=== PATIENT | male | born 1985 | race Caucasian/White ===

== ENCOUNTER 2023-03-02 20:33 | Emergency (ER) | payer MEDICAID ==
[~2023-03-02] VITALS: Ht 172.7 cm; Wt 72.6 kg
[2023-03-02 20:40] VITALS: BP 125/78; PULSE 67; RESP 16; TEMP 98; O2SAT 97
[2023-03-02 22:42] LABS: BASOPHILS % (AUTO) 0.6 % (0.0-2.0); EOSINOPHILS # (AUTO) 0.1 K/uL (0-0.4); EOSINOPHILS % (AUTO) 2.3 % (0.0-4.0); HEMOGLOBIN 14.5 g/dL (12.0-18.0); LYMPHOCYTES # (AUTO) 2.6 K/uL (2.0-11.5); LYMPHOCYTES % (AUTO) 39.8 % (20.5-51.1); MEAN CORPUSCULAR HEMOGLOBIN 30 pg (27-31); MEAN CORPUSCULAR HGB CONC 35 g/dL (33-37); MONOCYTES # (AUTO) 0.8 K/uL (0.8-1.0); MONOCYTES % (AUTO) 11.8 % (1.7-9.3); NEUTROPHILS % (AUTO) 45.5 % (42.2-75.2); PLATELET COUNT (AUTO) 243 K/uL (140-450); RED BLOOD CELL COUNT(AUTO) 4.77 MIL/uL (4.20-6.10); RED CELL DISTRIBUTION WIDTH 13.1 % (11.6-13.7); WHITE BLOOD COUNT (AUTO) 6.5 K/uL (4.8-10.8)
[2023-03-02] MEDS ORDERED: DICYCLOMINE HCL LIQUID 20 MG, ALUMINUM HYD/MAG/SIMETHICONE 30 ML, LIDOCAINE VISCOUS 2% ... PO ONE ×3 (22:50)
[2023-03-02] MEDS ORDERED: ALUMINUM HYD/MAG/SIMETHICONE 30 ML UDC ONE (22:53)
[2023-03-02] MEDS ORDERED: DICYCLOMINE HCL LIQUID 10 MG/5 ML UDC ONE (22:54)
[2023-03-02 23:04] LABS: ANION GAP 10.5 (8-16); CARBON DIOXIDE 26.6 mmol/L (21-32); POTASSIUM 4.1 mmol/L (3.5-5.1); TOTAL BILIRUBIN 0.4 mg/dL (0.0-1.0); TOTAL PROTEIN, SERUM 7.2 g/dL (6.4-8.2)
[2023-03-02 23:16] LABS: APPEARANCE,URINE CLEAR (CLEAR); BILIRUBIN,URINE NEGATIVE (NEGATIVE); BLOOD, URINE NEGATIVE (NEGATIVE); COLOR,URINE YELLOW (YELLOW); LEUKOCYTE ESTERASE ,URINE NEGATIVE (NEGATIVE); NITRITE, URINE NEGATIVE (NEGATIVE); PROTEIN,URINE NEGATIVE (NEGATIVE); UGLUCOSE NEGATIVE (NEGATIVE); UROBILINOGEN,URINE 0.2 EU/dL (0.2 - 1)
[2023-03-03] MEDS ORDERED: MAG355OR2 PO (00:39)
[2023-03-03] MEDS ORDERED: OMEP40EC23 PO (00:39)
[2023-03-03 01:05] VITALS: BP 105/68; PULSE 56; RESP 19; TEMP 98.7; O2SAT 97
== END 2023-03-03 01:05 | disposition home or self-care (01) ==
LOC: MED 20:33
DX: K29.70 Gastritis, unspecified, without bleeding (principal); R10.13 Epigastric pain; R11.2 Nausea with vomiting, unspecified; R19.7 Diarrhea, unspecified; Z88.0 Allergy status to penicillin; Z79.899 Other long term (current) drug therapy
CPT/HCPCS: 36415; 76705; 80053; 81003; 83690; 85025; 99284

== ENCOUNTER 2023-04-14 17:56 | Emergency (ER) | payer MEDICAID ==
[~2023-04-14] VITALS: Ht 172.7 cm; Wt 95.7 kg
[~2023-04-14 17:56] MED LIST: MAG355OR2 PO; OMEP40EC23 PO
[2023-04-14 18:42] VITALS: BP 125/72; PULSE 67; RESP 20; TEMP 97.7; O2SAT 98
[2023-04-14 19:29] LABS: BASOPHILS % (AUTO) 0.6 % (0.0-2.0); EOSINOPHILS # (AUTO) 0.2 K/uL (0-0.4); EOSINOPHILS % (AUTO) 2.3 % (0.0-4.0); HEMATOCRIT 41.9 % (36-52); HEMOGLOBIN 14.4 g/dL (12.0-18.0); LYMPHOCYTES # (AUTO) 2.4 K/uL (2.0-11.5); LYMPHOCYTES % (AUTO) 35.7 % (20.5-51.1); MEAN CORPUSCULAR HEMOGLOBIN 30 pg (27-31); MEAN CORPUSCULAR HGB CONC 34 g/dL (33-37); MEAN CORPUSCULAR VOLUME 88.4 fL (80-94); MONOCYTES # (AUTO) 0.7 K/uL (0.8-1.0); MONOCYTES % (AUTO) 9.8 % (1.7-9.3); NEUTROPHILS # (AUTO) 3.5 K/uL (1.8-7.7); NEUTROPHILS % (AUTO) 51.6 % (42.2-75.2); PLATELET COUNT (AUTO) 246 K/uL (140-450); RED BLOOD CELL COUNT(AUTO) 4.74 MIL/uL (4.20-6.10); RED CELL DISTRIBUTION WIDTH 13.3 % (11.6-13.7); WHITE BLOOD COUNT (AUTO) 6.8 K/uL (4.8-10.8)
[2023-04-14 19:40] LABS: ANION GAP 12.1 (8-16); CALCIUM 8.2 mg/dL (8.5-10.1); CARBON DIOXIDE 26.6 mmol/L (21-32); POTASSIUM 3.7 mmol/L (3.5-5.1)
[2023-04-14] MEDS ORDERED: ONDANSETRON 4 MG ODT PO ONE (20:45)
[2023-04-14] MEDS ORDERED: KETOROLAC 60 MG/2 ML VIAL IM ONE (20:45)
[2023-04-14 20:53] LABS: ALBUMIN 3.8 g/dL (3.4-5.0); BILIRUBIN,DIRECT 0.1 mg/dL (0.0-0.3); TOTAL BILIRUBIN 0.3 mg/dL (0.0-1.0)
[2023-04-14 21:09] LABS: APPEARANCE,URINE CLEAR (CLEAR); BILIRUBIN,URINE NEGATIVE (NEGATIVE); BLOOD, URINE NEGATIVE (NEGATIVE); COLOR,URINE YELLOW (YELLOW); LEUKOCYTE ESTERASE ,URINE NEGATIVE (NEGATIVE); NITRITE, URINE NEGATIVE (NEGATIVE); PROTEIN,URINE NEGATIVE (NEGATIVE); UGLUCOSE NEGATIVE (NEGATIVE); UROBILINOGEN,URINE 0.2 EU/dL (0.2 - 1)
[2023-04-14] MEDS ORDERED: MELO-176 PO (21:31)
[2023-04-14] MEDS ORDERED: ONDA-188 SL (21:32)
== END 2023-04-14 21:36 | disposition home or self-care (01) ==
LOC: MED 17:56
DX: R10.11 Right upper quadrant pain (principal); Z79.899 Other long term (current) drug therapy
CPT/HCPCS: 36415; 76705; 80048; 80076; 81003; 83690; 85025; 96372; 99285; J1885; Q0092; Q0162

== ENCOUNTER 2023-08-03 14:23 | Emergency (ER) | payer MEDICAID ==
[~2023-08-03] VITALS: Ht 172.7 cm; Wt 93.4 kg
[~2023-08-03 14:23] MED LIST changes: +MELO-176 PO; +ONDA-188 SL
[2023-08-03 14:32] VITALS: BP 122/82; PULSE 57; RESP 18; TEMP 98.2; O2SAT 98
[2023-08-03] MEDS ORDERED: BACI-418 TP (15:50)
[2023-08-03] MEDS ORDERED: CIPR500T4 PO (15:50)
== END 2023-08-03 15:00 | disposition home or self-care (01) ==
LOC: MED 14:23
DX: S91.331A Puncture wound without foreign body, right foot, initial encounter (principal); Z88.0 Allergy status to penicillin; Z79.899 Other long term (current) drug therapy; X58.XXXA Exposure to other specified factors, initial encounter; Y93.89 Activity, other specified; Y92.89 Other specified places as the place of occurrence of the external cause; Y99.8 Other external cause status
CPT/HCPCS: 90471; 90715; 99283